=== PATIENT | male | born 1960 | race Caucasian/White ===

== ENCOUNTER 2019-02-27 17:04 | Emergency (ER) | payer SELFPAY ==
[~2019-02-27] VITALS: Ht 188 cm; Wt 136.4 kg
[~2019-02-27 17:04] MED LIST: BACTERICIN500 U/GM TP; CIPRO 500MG TA500 MG PO; COLACE 100100 MG/CAP PO; FLOMAX 0.40.4 MG/CAP PO; NORCO 325 MG-51 TAB PO; NORCO 325 MG-7.1 TAB PO; NORVASC 5MG5 MG/TAB PO; PERCOCET 325 MG1 TA2 PO; WELLBUTRIN 75MG75 MG PO; ZOCOR 20MG20 MG PO
[2019-02-27 17:18] VITALS: BP 143/79; TEMP 98.8
[2019-02-27] MEDS ORDERED: NORCO 325 MG-51 TAB PO (19:14)
[2019-02-27 20:00] VITALS: PULSE 110
== END 2019-02-27 20:00 | disposition home or self-care (01) ==
LOC: COL.ER 17:04
DX: S82.402A Unspecified fracture of shaft of left fibula, initial encounter for closed fracture (principal); W20.8XXA Other cause of strike by thrown, projected or falling object, initial encounter; Y92.219 Unspecified school as the place of occurrence of the external cause